=== PATIENT | male | born 1945 | race Caucasian/White ===

== ENCOUNTER → 2016-05-27 | Outpatient (REF) | payer BC ==
[2016-05-27 19:20] LABS: ALBUMIN 3.9 GM/DL (3.2-5.2); ALBUMIN/GLOBULIN RATIO 1.18 (1.00-1.93); ALKALINE PHOSPHATASE 79 U/L (45-117); ALT/SGPT 29 U/L (12-78); ANION GAP 8 MEQ/L (8-16); AST/SGOT 20 U/L (15-37); BILIRUBIN,TOTAL 0.5 MG/DL (0.2-1.0); BLOOD UREA NITROGEN 19 MG/DL (7-18); CALCIUM LEVEL 8.9 MG/DL (8.8-10.2); CARBON DIOXIDE LEVEL 28 MEQ/L (21-32); CHLORIDE LEVEL 106 MEQ/L (98-107); CHOLESTEROL LEVEL 197 MG/DL (<200); CREATININE FOR GFR 1.08 MG/DL (0.70-1.30); GLOMERULAR FILTRATION RATE > 60.0 (>42); GLUCOSE, FASTING 98 MG/DL (83-110); POTASSIUM SERUM 4.6 MEQ/L (3.5-5.1); SODIUM LEVEL 142 MEQ/L (136-145); TOTAL PROTEIN 7.2 GM/DL (6.4-8.2); TRIGLYCERIDES LEVEL 148 MG/DL (<150)
== END ==
LOC: M SFHCCLAY 11:11
PROVIDERS: ATTEND Family Medicine
DX: I10 Essential (primary) hypertension (principal)

== ENCOUNTER → 2016-08-04 | Outpatient (REF) | payer BC ==
[2016-08-04 12:22] LABS: ANION GAP 7 MEQ/L (8-16); BLOOD UREA NITROGEN 20 MG/DL (7-18); CALCIUM LEVEL 8.7 MG/DL (8.8-10.2); CARBON DIOXIDE LEVEL 27 MEQ/L (21-32); CHLORIDE LEVEL 107 MEQ/L (98-107); CREATININE FOR GFR 1.14 MG/DL (0.70-1.30); GLOMERULAR FILTRATION RATE > 60.0 (>42); GLUCOSE, FASTING 87 MG/DL (83-110); POTASSIUM SERUM 4.4 MEQ/L (3.5-5.1); SODIUM LEVEL 141 MEQ/L (136-145)
== END ==
LOC: M SFHCCLAY 07:15
PROVIDERS: ATTEND Family Medicine
DX: H30.92 Unspecified chorioretinal inflammation, left eye (principal)

== ENCOUNTER → 2017-02-10 | Outpatient (REF) | payer MEDICARE, BC ==
[2017-02-10 18:09] LABS: ALT/SGPT 29 U/L (12-78); ANION GAP 8 MEQ/L (8-16); BLOOD UREA NITROGEN 18 MG/DL (7-18); CALCIUM LEVEL 9.1 MG/DL (8.8-10.2); CARBON DIOXIDE LEVEL 28 MEQ/L (21-32); CHLORIDE LEVEL 106 MEQ/L (98-107); CHOLESTEROL LEVEL 145 MG/DL (<200); CREATININE FOR GFR 1.05 MG/DL (0.70-1.30); GLOMERULAR FILTRATION RATE > 60.0 (>42); GLUCOSE, FASTING 97 MG/DL (83-110); POTASSIUM SERUM 4.5 MEQ/L (3.5-5.1); SODIUM LEVEL 142 MEQ/L (136-145); TRIGLYCERIDES LEVEL 80 MG/DL (<150)
== END ==
LOC: M SFHCCLAY 11:12
PROVIDERS: ATTEND Family Medicine
DX: E78.00 Pure hypercholesterolemia, unspecified (principal)

== ENCOUNTER 2017-05-17 14:37 | Emergency (ER) | payer BC | END 2017-05-17 17:08 | disposition home or self-care (01) | LOC: M ED 14:37 | DX: H43.811 Vitreous degeneration, right eye (principal); H43.391 Other vitreous opacities, right eye; I10 Essential (primary) hypertension; Z79.899 Other long term (current) drug therapy; Z86.69 Personal history of other diseases of the nervous system and sense organs; Z88.0 Allergy status to penicillin | CPT/HCPCS: 99283 ==

== ENCOUNTER → 2017-09-18 | Outpatient (CLI) | payer BC ==
[2017-09-18 13:56] LABS: BASO # 0.1 10^3/uL (0.0-0.2); EOS # 0.2 10^3/uL (0.0-0.50); EOS % 3.1 % (0.0-3.0); HEMATOCRIT 41.2 % (42.0-52.0); HEMOGLOBIN 13.9 g/dl (13.5-17.5); IMMATURE GRANULOCYTE % 1.9 % (0-3.0); LYMPH # 1.2 10^3/uL (1.5-4.5); LYMPH % 17.4 % (24.0-44.0); MEAN CORPUSCULAR HEMOGLOBIN 32.3 pg (27.0-33.0); MEAN CORPUSCULAR HGB CONC 33.7 g/dl (32.0-36.5); MEAN CORPUSCULAR VOLUME 95.8 fl (80.0-96.0); MONO # 0.6 10^3/uL (0.0-0.8); MONO % 8.8 % (0.0-5.0); NEUTROPHILS # 4.6 10^3/uL (1.8-7.7); NEUTROPHILS % 67.8 % (36.0-66.0); PLATELET COUNT, AUTOMATED 259 10^3/uL (150-450); RED CELL DISTRIBUTION WIDTH 13.1 % (11.5-14.5); WHITE BLOOD COUNT 6.7 10^3/uL (4.0-10.0)
[2017-09-18 14:31] LABS: ANION GAP 9 MEQ/L (8-16); BLOOD UREA NITROGEN 22 MG/DL (7-18); CALCIUM LEVEL 8.7 MG/DL (8.8-10.2); CARBON DIOXIDE LEVEL 27 MEQ/L (21-32); CHLORIDE LEVEL 106 MEQ/L (98-107); CREATININE FOR GFR 1.15 MG/DL (0.70-1.30); GLOMERULAR FILTRATION RATE > 60.0 (>42); GLUCOSE, FASTING 94 MG/DL (70-100); POTASSIUM SERUM 4.4 MEQ/L (3.5-5.1); SODIUM LEVEL 142 MEQ/L (136-145)
== END ==
LOC: M LAB 13:07
DX: I65.23 Occlusion and stenosis of bilateral carotid arteries (principal)
CPT/HCPCS: 80048

== ENCOUNTER → 2017-09-22 | Outpatient (CLI) | payer BC ==
[~2017-09-22] MED LIST: ISOVUE-370 76% 100ML VIAL (Q9967) As Ordered
== END ==
LOC: M RAD 07:31
DX: I65.23 Occlusion and stenosis of bilateral carotid arteries (principal); I67.2 Cerebral atherosclerosis
CPT/HCPCS: Q9967

== ENCOUNTER → 2018-02-22 | Outpatient (REF) | payer BC, MEDICARE ==
[~2018-02-22] MED LIST changes: +ATEN25TA PO; +ATOR1TAB19 PO; -ISOVUE-370 76% 100ML VIAL (Q9967) As Ordered; +LOSA100T8 PO
[2018-02-22 11:45] LABS: ALBUMIN 3.8 GM/DL (3.2-5.2); ALT/SGPT 33 U/L (12-78); BILIRUBIN,TOTAL 0.4 MG/DL (0.2-1.0); BLOOD UREA NITROGEN 24 MG/DL (7-18); CALCIUM LEVEL 9.2 MG/DL (8.8-10.2); CARBON DIOXIDE LEVEL 26 MEQ/L (21-32); CHLORIDE LEVEL 105 MEQ/L (98-107); CHOLESTEROL LEVEL 165 MG/DL (<200); CHOLESTEROL RISK RATIO 3.235 (<5); CREATININE FOR GFR 1.11 MG/DL (0.70-1.30); GLOMERULAR FILTRATION RATE > 60.0 (>42); GLUCOSE, FASTING 118 MG/DL (70-100); HDL CHOLESTEROL 51 MG/DL (>40); LDL CHOLESTEROL 75 MG/DL (<100); NON-HDL-C 114 MG/DL; POTASSIUM SERUM 4.1 MEQ/L (3.5-5.1); SODIUM LEVEL 140 MEQ/L (136-145); TOTAL PROTEIN 7.4 GM/DL (6.4-8.2); TRIGLYCERIDES LEVEL 196 MG/DL (<150)
== END ==
LOC: M SFHCCLAY 08:17
PROVIDERS: ATTEND Family Medicine
DX: I10 Essential (primary) hypertension (principal); E78.00 Pure hypercholesterolemia, unspecified

== ENCOUNTER → 2018-06-01 | Outpatient (CLI) | payer BC, MEDICARE ==
--- NOTE | 2018-06-01 14:26 | REP ---
Duplex carotid sonography: History: Occlusion and stenosis of bilateral carotid arteries. CT angiography of the neck is from September 22, 2017. This showed 65% stenosis right internal carotid artery. Findings: Antegrade flow was observed in both vertebral arteries. Right carotid: The right common carotid artery shows mild diffuse intimal thickening. There is moderate mixed plaquing in the bulb, proximal ICA and proximal ECA on the right side on two-dimensional scanning. Elevated systolic and diastolic flow velocities are observed on the right consistent with substantial stenosis. Velocity chart right carotid: PSV EDV Right CCA 65.0 cm/s Right ICA 352.0 124.0 Right ECA 107.0 Right ICA/CCA ratio elevated 5.4. Impression: 80-99% category stenosis by Doppler velocity criteria. Right ICA Doppler velocities are not substantially different than those measured by ultrasound previously on June 06, 2017. Left carotid: Left common carotid artery shows diffuse intimal thickening. There is moderate plaquing in the bulb, proximal ICA and proximal ECA on the left side. Color flow and spectral Doppler interrogation are unremarkable on the left. Velocity chart left carotid: PSV EDV Left CCA 77.0 cm/s Left ICA 73.0 19.0 Left ECA 69.0 Left ICA/CCA ratio normal 0.95. Impression: 16-49% category narrowing in the left ICA by Doppler velocity criteria. Left ICA Doppler velocities are not significantly changed. Electronically Signed by Joe Mullen MD 06/01/2018 02:39 P
== END ==
LOC: M RAD 12:08
PROVIDERS: ATTEND Surgery Vascular Surgery
DX: I65.23 Occlusion and stenosis of bilateral carotid arteries (principal)

== ENCOUNTER → 2018-08-26 | Outpatient (CLI) | payer BC | LOC: M WUC 12:08 | PROVIDERS: ATTEND Physician Assistant | DX: M79.674 Pain in right toe(s) (principal) ==

== ENCOUNTER → 2018-11-30 | Outpatient (CLI) | payer BC ==
--- NOTE | 2018-11-30 16:55 | REP ---
Duplex carotid sonography: History: Carotid stenosis. Comparison study June 30, 2018. Sonographic findings: Antegrade flow was observed in both vertebral arteries. Right carotid: There is mild soft plaquing in the common carotid artery on the right. There is moderate mixed plaquing in the bulb and proximal ICA and there is evidence of ICA stenosis. Elevated systolic and diastolic velocities are observed on color Doppler interrogation in the ICA on the right side. Velocities have increased slightly since the prior study. Plaquing is visually unchanged. Velocity chart right carotid: CCA PSV 91 cm/s ICA PSV 41 cm/s ICA EDV 140 cm/s ECA PSV 120 cm/s Right ICA/CCA ratio elevated 5.3. Impression: Greater than 70% category narrowing in the right ICA by Doppler velocity criteria. Doppler velocities are slightly higher than on the prior study. Left carotid: Left common carotid artery shows soft plaquing. There is moderate proximal ICA and proximal ECA plaquing on two-dimensional scanning. Color flow and spectral Doppler interrogation remain unremarkable however. Velocity chart left carotid: CCA PSV 114 cm/s ICA PSV 100 cm/s ICA EDV 24 cm/s ECA PSV 148 cm/s Left ICA/CCA ratio normal 1.1. Impression: Less than 50% category narrowing in the left ICA by Doppler velocity criteria. Doppler velocities are essentially unchanged on the left. Electronically Signed by Joe Mullen MD 11/30/2018 05:07 P
== END ==
LOC: M RAD 10:30
PROVIDERS: ATTEND Surgery Vascular Surgery
DX: I65.23 Occlusion and stenosis of bilateral carotid arteries (principal)

== ENCOUNTER → 2019-02-11 | Outpatient (CLI) | payer BC ==
--- NOTE | 2019-02-11 13:45 | REP ---
Two-view chest: 02/11/2019. Indication: Chest pain. Comparison: None. Findings: The lungs are clear. There is no pleural effusion or pneumothorax. The cardiomediastinal silhouette is unremarkable. There is mild elevation of the left hemidiaphragm. Impression: No acute cardiopulmonary process. Electronically Signed by Jeremiah Roth DO 02/11/2019 01:37 P
== END ==
LOC: M WUC 13:14
PROVIDERS: ATTEND Internal Medicine Cardiovascular Disease
DX: R07.2 Precordial pain (principal)

== ENCOUNTER 2019-03-13 09:59 | Inpatient (IN) | payer MEDICARE, BC ==
--- NOTE | 2019-02-20 20:59 | HPE ---
DATE OF ADMISSION: 03/13/2019 CHIEF COMPLAINT: Carotid stenosis. HISTORY OF PRESENT ILLNESS: This is a very pleasant 73-year-old gentleman who presents to discuss options for severe right carotid stenosis. The patient has asymptomatic right carotid stenosis greater than 80%. His peak-systolic velocity (PSV)/end-diastolic velocity (EDV) is 410/140 for the right internal carotid artery (ICA). The ICA/common carotid artery (CCA) ratio is 5.3. This is a significant stenosis and we had a lengthy discussion about carotid artery disease, best medical management, indication for carotid endarterectomy, and perioperative expectations. Risks, benefits and alternatives to carotid endarterectomy on the right were extensively explained to the patient and his and they are both agreeable to proceed. Informed consent was obtained. Left carotid artery stenosis is less than 50% and no further vascular intervention is required for the left side at this time. The patient is on best medical management with aspirin and statin and Plavix. He denies any recent history of transient ischemic attack (TIA) or stroke. We would like him to stay on the Plavix perioperatively and not hold it for surgery. He should also stay on the aspirin for surgery. He is agreeable to this plan. MEDICATIONS: - aspirin 81 mg daily - atenolol 12.5 mg daily - atorvastatin 10 mg daily - donepezil 5 mg daily - escitalopram oxalate 10 mg daily - hydrochlorothiazide 12.5 mg daily - losartan potassium/hydrochlorothiazide 100/12.5 mg daily - Plavix 75 mg daily - vitamin D3 2000 units nightly ALLERGIES: PENICILLIN. PAST MEDICAL HISTORY: Lyme disease, blind in the left eye, gastroesophageal reflux disease, hypertension, hypercholesterolemia. PAST SURGICAL HISTORY: Right knee surgery, deviated septum repair, colonoscopy, peripherally inserted central catheter (PICC) line placement, cataract implant on the left. FAMILY HISTORY: Lung cancer, diabetes, hypertension. SOCIAL HISTORY: The patient is a former smoker who quit in 1997. He has occasional alcohol and denies illicit drug use. REVIEW OF SYSTEMS: CONSTITUTIONAL: The patient denies fevers, chills, weight gain, or weight loss. EYES: No new vision changes but he is blind in his left eye. EARS, NOSE, MOUTH, AND THROAT: He denies hearing loss, congestion, or dysphagia. CARDIOVASCULAR: He denies chest pain or palpitations. RESPIRATORY: He denies cough, hemoptysis, or shortness of breath. GASTROINTESTINAL (GI): He reports gastroesophageal reflux disease (GERD) but denies abdominal pain, constipation, diarrhea, nausea or vomiting. MUSCULOSKELETAL: He denies myalgia, pain and trouble walking. SKIN: He denies skin cancer, rash and wound. NEUROLOGIC: He denies focal deficit, headaches or seizures. PSYCHIATRIC: He denies anxiety or depression. ENDOCRINE: He denies diabetes, hyperthyroid or hypothyroidism. HEMATOLOGIC: He denies anemia or excessive bruising. PHYSICAL EXAMINATION: He is afebrile. Vital signs are stable. CONSTITUTIONAL: He appears healthy and well-developed. No signs of apparent distress are present. HEAD AND FACE: Normal on inspection. EARS, NOSE, MOUTH, AND THROAT: Tympanic membranes are intact. External nose within normal limits. NECK: Supple. Right carotid bruit is present. RESPIRATORY: No wheezing. Clear to auscultation. CARDIOVASCULAR: Regular rate and rhythm. ABDOMEN: Bowel sounds are present. Abdomen is soft, nontender, nondistended. LYMPHATICS: No palpable or visible lymphadenopathy. MUSCULOSKELETAL: Gait is steady. Distal pulses 2+, dorsalis pedis (DP) and posterior tibial (PT). SKIN: No rashes or lesions. NEUROLOGIC: Alert and oriented times three, moves all extremities equally. No focal neurologic deficits are noted. PSYCHIATRIC: Pleasant and cooperative. IMAGING STUDIES: Carotid duplex reviewed with the patient in clinic today. Please see history of present illness for relevant interpretation. ASSESSMENT AND PLAN: A very pleasant 73-year-old gentleman with severe right internal carotic artery stenosis, asymptomatic. 1. Continue aspirin and Plavix and statin. We would like Plavix to be continued for at least 30 days perioperatively and the patient should stay on it before surgery and not hold the Plavix or the aspirin. 2. Plan for right carotid endarterectomy with patch angioplasty. We appreciate the opportunity to participate in the care of this patient.
[2019-03-13] VITALS (15 sets, daily range): BP systolic 98–149; BP diastolic 50–74
[~2019-03-13] VITALS: Ht 180.3 cm; Wt 118.0 kg
[~2019-03-13 09:59] MED LIST changes: +ASPI81TA26 PO; +DONETAB6 PO; +HYDR12.55 PO; +LEXA1TAB PO; +LR 1,000 ML IV ONE; +PLAV1TAB2 PO; +VANCOMYCIN HCL 1,000 MG, VIAL MATE ADAPTER 1 EACH in D5W 250 ML IV SCH
[2019-03-13] MEDS ORDERED: THROMBIN SOLN 20,000 UNITS KIT As Ordered ONE (10:22)
[2019-03-13] MEDS ORDERED: LIDOCAINE 1% SDV INJ 30 ML VIAL As Ordered ONE ×2 (10:23→13:11)
[2019-03-13] MEDS ORDERED: HEPARIN SOD (PORCINE) 5000 UNITS/ML VIAL (J1644 PER 1000UNITS) As Ordered ONE ×2 (10:23→12:37)
[2019-03-13] MEDS ORDERED: D32000TA2 PO (10:37)
[2019-03-13 10:39] LABS: HEMATOCRIT 44.2 % (42.0-52.0); HEMOGLOBIN 14.5 g/dl (13.5-17.5); MEAN CORPUSCULAR HEMOGLOBIN 32.5 pg (27.0-33.0); MEAN CORPUSCULAR HGB CONC 32.8 g/dl (32.0-36.5); MEAN CORPUSCULAR VOLUME 99.1 fl (80.0-96.0); PLATELET COUNT, AUTOMATED 272 10^3/uL (150-450); RED BLOOD COUNT 4.46 10^6/uL (4.30-6.10); WHITE BLOOD COUNT 6.3 10^3/uL (4.0-10.0)
[2019-03-13 11:02] LABS: BLOOD UREA NITROGEN 20 MG/DL (7-18); CARBON DIOXIDE LEVEL 29 MEQ/L (21-32); CHLORIDE LEVEL 105 MEQ/L (98-107); CREATININE FOR GFR 1.21 MG/DL (0.70-1.30); GLOMERULAR FILTRATION RATE > 60.0 (>42); GLUCOSE, FASTING 106 MG/DL (70-100); POTASSIUM SERUM 3.9 MEQ/L (3.5-5.1); SODIUM LEVEL 140 MEQ/L (136-145)
[2019-03-13] MEDS ORDERED: VANCOMYCIN 1000 MG/20 ML VIAL (J3370) As Ordered ONE ×3 (11:07→11:20)
[2019-03-13] MEDS ORDERED: VIAL MATE ADAPTER XX ONE (11:20)
[2019-03-13] MEDS ORDERED: BUPIVACAINE/EPIN 0.5% 30 ML VIAL As Ordered ONE (12:04)
[2019-03-13] MEDS ORDERED: ROCURONIUM BROMIDE 50 MG/5 ML VIAL As Ordered ONE (12:37)
[2019-03-13] MEDS ORDERED: fentaNYL 100 MCG/2 ML INJECTION (J3010) As Ordered ONE (12:37)
[2019-03-13] MEDS ORDERED: propofoL 200 MG/20 ML VIAL As Ordered ONE ×2 (12:37→13:12)
[2019-03-13] MEDS ORDERED: MIDAZOLAM INJ 2 MG/2 ML VIAL (J2250) As Ordered ONE (12:37)
[2019-03-13] MEDS ORDERED: dexameTHASONE 4 MG/ML 1ML VIAL (J1100) As Ordered ONE (12:37)
[2019-03-13] MEDS ORDERED: PHENYLEPHRINE INJ 10MG/ML VIAL (J2370) As Ordered ONE (12:37)
[2019-03-13] MEDS ORDERED: LABETALOL HCL 100 MG/20 ML VIAL As Ordered ONE (12:37)
[2019-03-13] MEDS ORDERED: LIDOCAINE 2% INJ 100 MG/5 ML SDV (FOR ANES.) As Ordered ONE ×2 (12:37→13:50)
[2019-03-13] MEDS ORDERED: ePHEDrine SULFATE 25 MG/5 ML(5MG/ML) SYRINGE As Ordered ONE ×2 (12:44→14:16)
[2019-03-13] MEDS ORDERED: GLYCOPYRROLATE INJ 0.2 MG/ML 2 ML VIAL As Ordered ONE (13:04)
[2019-03-13] MEDS ORDERED: ATROPINE SULF 1MG/10ML SYRINGE (J0461) As Ordered ONE (13:11)
[2019-03-13] MEDS ORDERED: NITROGLYCERIN IN D5W 25MG/250ML (100MCG/ML) As Ordered ONE (13:42)
[2019-03-13] MEDS ORDERED: ESMOLOL INJ 100MG/10ML VIAL As Ordered ONE (14:08)
[2019-03-13] MEDS ORDERED: ACETAMINOPHEN 1000MG 100ML IV BTL (OFIRMEV) (J0131 PER 10MG) As Ordered ONE (14:10)
[2019-03-13] MEDS ORDERED: SUGAMMADEX SODIUM 500 MG/5 ML VIAL (BRIDION) As Ordered ONE (14:26)
--- NOTE | 2019-03-13 15:18 | ROOPDOC ---
[facility] Report Of Operation Report of Operation DATE OF PROCEDURE: 03/13/19 PREPROCEDURE DIAGNOSES: Severe right carotid stenosis, asymptomatic. POSTPROCEDURE DIAGNOSES: Same. PROCEDURE: Right carotid endarterectomy with Xenosure patch angioplasty. SURGEON: Sheri Parson MD ANESTHESIA: General anesthesia and local anesthesia. INDICATION FOR PROCEDURE: Mr. Medeiros is a very pleasant 73-year-old gentleman with asymptomatic severe right carotid stenosis. Risks benefits and alternatives to right carotid endarterectomy were explained to the patient and his family. He was agreeable to proceed and informed consent was obtained. Preoperatively, his neuro exam revealed cranial nerves grossly intact, speech clear, moving all extr emities equally and no focal deficits noted. REPORT OF OPERATION: The patient was brought to the OR in stable condition and placed supine on the OR table. Antibiotics and general anesthesia were administered without consultation. An art line was placed by our anesthesia colleagues. A shoulder roll was placed in the head was positioned to extend the neck but make sure there was enough support for the head. His right neck and chest were prepped and draped in sterile fashion. A timeout was performed. An oblique incision was made over the anterior border of the sternocleidomastoid and carried down to the subcutaneous tissue and the platysma with Bovie cautery. We then continued or dissection along the anterior border of the sternocleidomastoid until the jugular vein was encountered. We dissected along the anterior border of the jugular vein and the facial vein was suture ligated and divided. Next, we dissected along the distal common carotid artery circumferentially and a vessel loop was placed. We then proceeded up to this. Thyroid artery and a vessel loop was placed. We then placed a vessel loop around the external carotid arteries well. 5000 units of heparin was given by anesthesia and allowed to circulate the continued or dissection along the internal carotid artery until we were distal to the area palpable plaque. We then placed a vessel loop distally. During or dissection, nerves were identified and carefully preserved. Following this, we secured the Vesseloops on the internal carotid artery, external carotid artery comments. Thyroid artery, and then the common carotid artery. An arteriotomy was made on the common carotid artery and extended over the area of tight plaque in the internal carotid artery origin with pot scissors. We then placed the distal end of an 8 [place] shunt into the internal carotid artery and resecured the Vesseloops a good backbleeding was noted. We placed the proximal and into the common carotid artery resecured the Vesseloops. Flow was confirmed with the Doppler. We maintained blood pressure while the patient was shunted between 140 and 160 mmHg. The plaque elevator was used to elevate the plaque in the common carotid artery and this was transected at the proximal end of her arteriotomy. We then feathered the plaque out towards the external carotid artery which was everted to allow good endarterectomy plane. We then feathered the plaque out carefully to a good endpoint in the internal carotid artery. Care was taken to live removed all loose intima and debris from the carotid bulb. We irrigated with heparinized saline and again make sure all loose intima and debris was removed. We then fashioned and accuracy O patch to 50 arteriotomy and anastomosis in a running fashion with 5-0 Prolene suture. Before the final sutures are placed, we irrigated with heparinized saline, removed the shunt from the internal carotid artery and flushed and resecured the Vesseloops, and then removed the shunt from the common carotid artery and flushed and resecured the vessel loop we also flush the external carotid artery. We irrigated with heparinized saline and placed our last few stitches. We then restored flow first through the external carotid artery and superior thyroid, then the common carotid artery, and after 10 beats of the heart we restart flow to the internal carotid artery. Blood pressure was then allowed to drift down below 140 mmHg for the duration of the case. Minimal oozing around the patch was noted at the needle holes, and Surgicel was placed over the patch and gentle pressure was held for 1 minute and good hemostasis was noted. We irrigated with copious amounts of saline. A MEGHAN drain was placed and secured with a nylon suture in place to bulb suction. Local anesthesia was administered to the skin and subcutaneous tissue around the incision. We closed the platysmal layer with a running 2-0 Vicryl suture. We approximated the skin edges with interrupted deep dermal 4-0 Vicryl suture. And then we closed the skin with a running subcuticular Monocryl suture. Mastisol and Steri-Strips were used to dress the wound. A drain sponge was placed at the MEGHAN exit site. The patient was allowed to awaken from anesthesia and was able to speak clearly, move all extremities equally, and follow commands before we transferred him to the bed and left the OR. He went to PACU in stable condition and will be admitted to the ICU overnight. ESTIMATED BLOOD LOSS: Approximately 75 mL. COMPLICATIONS: None. PLAN: The patient will be admitted to the hospitalist service, ICU for blood pressure monitoring, neuro checks, and monitoring for development of hematoma right neck postop. If he is stable and doing well tomorrow, able to ambulate and urinate without difficulty, able to eat without difficulty, and his neuro exam is stable with stable vital signs, he will likely be able to be discharged tomorrow morning. Goal blood pressure is less than 140 mmHg systolic. SHERI PARSON MD Mar 13, 2019 15:18
[2019-03-13] MEDS ORDERED: LR 1,000 ML IV SCH (15:30)
[2019-03-13] MEDS ORDERED: hydrALAZINE INJ 20 MG/ML VIAL IV PRN (15:30)
[2019-03-13] MEDS ORDERED: ONDANSETRON 4MG/2ML VIAL (J2405) IV PRN (15:30)
[2019-03-13] MEDS ORDERED: ACETAMINOPHEN TAB 650MG DOSE (2X325MG) PO PRN (15:30)
[2019-03-13] MEDS ORDERED: LABETALOL HCL 100 MG/20 ML VIAL IV PRN (15:30)
[2019-03-13] MEDS ORDERED: PERCOCET 5MG/325MG TAB PO PRN (15:30)
[2019-03-13] MEDS ORDERED: fentaNYL 100 MCG/2 ML INJECTION (J3010) IV PRN (15:30)
[2019-03-13] MEDS ORDERED: oxyCODONE 5MG TAB PO PRN (15:30)
--- NOTE | 2019-03-13 17:50 | IPNPDOC ---
Date Seen The patient was seen on 03/13/19. Progress Note POSTOP CHECK: Mr. Medeiros is a 73-year-old gentleman status post right carotid endarterectomy earlier today for severe asymptomatic right internal carotid artery stenosis. He is doing well postop. His voice is clear, cranial nerves are grossly intact, tongue is midline, strength is equal in the bilateral upper and lower extremities, and no focal deficits are noted. He has mild swelling in the right neck consistent with operative intervention. He has minimal output in his MEGHAN drain. His blood pressure is fairly well controlled with a goal systolic blood pressure of less than 140 mmHg, and minimal IV antihypertensives have been needed to maintain him in that range. He has not yet eaten or gotten out of bed, but the nurse that she will bring him a tray of food shortly. If he doesn't get up tonight, he should definitely get up in the morning and ambulate, and if he is able to do so, knees able to eat, and his neuro exam is stable, his vitals are stable and his pain is controlled then he will be able to discharge tomorrow. Our plan will be to discharge the MEGHAN drain in the morning and see how he is feeling. He will continue the Plavix until his prescription is complete, and then he does not need to renew it from a vascular standpoint. He should continue aspirin and statin daily for life. We will plan to see him back in a week to check his incision, and then at a month postop for a repeat carotid duplex as part of our postop protocol. The patient's family is at the bedside and we had an extensive discussion and all questions were answered. VS, I&O, 24H, Fishbone Vital Signs/I&O Vital Signs Date Time Temp Pulse Resp B/P (MAP) Pulse Ox O2 Delivery O2 Flow Rate FiO2 03/13/19 16:30 65 16 114/56 (75) 100 Nasal Cannula 2 03/13/19 15:45 96.7 Laboratory Data 24H LABS Laboratory Tests 2 03/13/19 10:18: Nucleated Red Blood Cells % (auto) 0.0, Anion Gap 6L, Glomerular Filtration Rate > 60.0, Calcium Level 9.0 CBC/BMP Laboratory Tests 03/13/19 10:18 SHERI PRITCHARD MD Mar 13, 2019 17:50
--- NOTE | 2019-03-13 19:11 | HPE ---
DATE OF ADMISSION: 03/13/2019 CHIEF COMPLAINT: Carcinosis, status post right carotid endarterectomy this afternoon. HISTORY OF PRESENT ILLNESS: Mr. Medeiros is a very pleasant 73-year-old gentleman who had presented for an elective right carotid endarterectomy due to severe right carotid stenosis greater than 80%. He was seen in the postoperative setting, currently in the intensive care unit (ICU). He is alert and oriented times three and denies having any acute neurologic deficits. He has a past medical history of Lyme disease, which has rendered him to be blind in his left eye. He has a history of hypertension, hyperlipidemia, as well as gastroesophageal reflux disease (GERD). ALLERGIES: PENICILLIN which causes rash. His medications are aspirin, Tylenol, atorvastatin, donepezil, citalopram, hydrochlorothiazide, losartan/hydrochlorothiazide, Plavix 75 mg daily and vitamin D3 2000 units nightly. PAST MEDICAL HISTORY: Notable for hyperlipidemia, hypertension ,gastroesophageal reflux disease (GERD), Lyme disease and left eye blindness. PAST SURGICAL HISTORY: He has a nasal septum repair. He has had a cataract implant in the left eye. SOCIAL HISTORY: The patient is an ex-smoker, who quit in the late s. He does not use any alcohol, but drinks occasional alcohol. Resides at home with his family. REVIEW OF SYSTEMS: 12-systems review of the patient otherwise negative. PHYSICAL EXAMINATION: On examination today, the patient's vitals are the following: Pulse of 65, respirations 16, blood pressure is 114/56, oxygen saturation 100% on nasal cannula. GENERAL: The patient is alert and oriented times three. His speech is fluent. He has no facial asymmetry. He is moving all four extremities in a purposeful coordinated manner. HEAD: Atraumatic. Normocephalic. His pupils are symmetric and reactive to light. Extraocular movements are full in all directions. Oropharynx is clear with areas of erythema or thrush. Tongue is midline. Soft palate elevates bilaterally. . He has a mildly noticeable left facial droop, which is likely chronic. His right neck surgical wound is clean, dry and intact with drains in place draining serosanguineous fluid. He has no exsanguination from the surgical wound bed. He has no audible stridor. His trachea is midline. Lung sounds are appreciated without rales, wheezes or rhonchi. Heart: S1, S2. No audible murmurs, rubs or gallops. Abdomen is soft, nontender, nondistended wit active bowel sounds. Extremities: Without any significant cyanosis, clubbing or edema. Neurological exam: Cranial nerves II/XII are grossly intact. Motor strength is 5/5 in upper and lower extremities at the proximal and distal musculature. Speech is fluent. He has a mild left facial asymmetry, which likely is not reflective of a stroke as he has no other stroke symptoms. PERTINENT LABS ARE THE FOLLOWING: White count is 6.3, hemoglobin 14.5, hematocrit 44.2, platelet count 272,000. Sodium is 140, potassium is 3.9, chloride 105, bicarbonate is 29, anion gap 6, BUN is 20, creatinine is 1.2, glucose is 106, calcium is 9. IMPRESSION: 1. Right carotid severe stenosis, status post right carotid endarterectomy. 2. Hypertension. 3. Hyperlipidemia 4. Deep vein thrombosis (DVT) prophylaxis. PLAN: The patient will be admitted to the intensive care unit (ICU) for observation following his carcinoembryonic antigen. Dr. Parson will remain on consultation and manage his postoperative course. He will be continued on his Plavix. I have resumed his Lexapro, as well as hydrochlorothiazide. At present moment, his blood pressure is less than 130 mmHg. He can be renewed on his atorvastatin, as well as other medications at the time of discharge. Thank you Dr. Parson for allowing us to involve ourself in this case. We will gladly follow.
[2019-03-14] VITALS (12 sets, daily range): BP systolic 96–148; BP diastolic 49–96
[2019-03-14] MEDS ORDERED: ESCITALOPRAM OXALATE 10 MG TAB (LEXAPRO) PO SCH (09:00)
[2019-03-14] MEDS ORDERED: hydroCHLOROthiazide 12.5 MG CAPSULE PO SCH (09:00)
[2019-03-14] MEDS ORDERED: CLOPIDOGREL 75 MG TAB PO SCH (09:00)
[2019-03-14] MEDS ORDERED: PERCOCET PO (09:03)
[2019-03-14 09:12] LABS: HEMATOCRIT 38.7 % (42.0-52.0); HEMOGLOBIN 12.8 g/dl (13.5-17.5); MEAN CORPUSCULAR HGB CONC 33.1 g/dl (32.0-36.5); MEAN CORPUSCULAR VOLUME 99.7 fl (80.0-96.0); PLATELET COUNT, AUTOMATED 249 10^3/uL (150-450); RED BLOOD COUNT 3.88 10^6/uL (4.30-6.10); WHITE BLOOD COUNT 11.2 10^3/uL (4.0-10.0)
[2019-03-14 09:44] LABS: CALCIUM LEVEL 8.7 MG/DL (8.8-10.2); CREATININE FOR GFR 1.26 MG/DL (0.70-1.30); GLOMERULAR FILTRATION RATE 59.6 (>42); POTASSIUM SERUM 3.7 MEQ/L (3.5-5.1)
--- NOTE | 2019-03-14 14:16 | IPNPDOC ---
Text Note Date of Service The patient was seen on 03/14/19. NOTE Vascular surgery. Dr. Parson Mr. Medeiros is a 73-year-old gentleman status post right carotid endarterectomy 03/13/19 for severe asymptomatic right internal carotid artery stenosis. He is currently out of bed sitting in the chair. He has been eating and drinking. He states he ambulated in the room. Pain has been controlled. His voice is clear, cranial nerves are grossly intact, tongue is midline, strength is equal in the bilateral upper and lower extremities, and no focal deficits are noted. He has mild swelling in the right neck consistent with operative intervention. He has minimal output in his MEGHAN drain. Blood pressure this a.m. 120/61. MEGHAN drain was removed as per Dr. Parson this morning. The wound was cleaned. Steri-Strips were applied. Dry dressing reapplied. He will continue the Plavix until his prescription is complete, and then he does not need to renew it from a vascular standpoint. He should continue aspirin and statin daily for life. Will arrange outpatient follow-up in 5-7 days, one month repeat carotid duplex as part of our postop protocol. The patient's family is at the bedside and we had an extensive discussion and all questions were answered. VS,Fishbone, I+O VS, Fishbone, I+O Laboratory Tests 03/14/19 08:37 Vital Signs Date Time Temp Pulse Resp B/P (MAP) Pulse Ox O2 Delivery O2 Flow Rate FiO2 03/14/19 08:00 97.9 52 18 120/61 (84) 98 Room Air 108/96 03/13/19 16:30 2 I&O- Last 24 Hours up to 6 AM 03/14/19 06:00 Intake Total 3937 ml Output Total 347 ml Balance 3590 ml Alyce Castano Mar 14, 2019 14:16
--- NOTE | 2019-03-14 15:33 | DSES ---
DATE OF ADMISSION: 03/13/2019 DATE OF DISCHARGE: 03/14/2019 Mr Medeiros was admitted by Dr. Parson for treatment for performance of carotid endarterectomy on the right side. The surgery went uneventfully. He had mild left facial droop, which by accounts seemed to have been present before the procedure and is not particularly worse after the procedure. Pressures were well controlled throughout with the highest postoperative pressure being 148/52. Arterial line was discontinued this morning. Drain was pulled by Dr. Parson this morning. Minimal oozing. The patient is declared safe for discharge by the surgeon. Laboratory data during hospital stay, electrolytes remarkable for normal potassium and sodium. Glucose 106, fasting. Calcium was normal 9.0. Hemoglobin 14.5, normal platelet count, white count 6300. The patient's past medical history is remarkable for hypertension and hypercholesterolemia, and a history of Lyme disease. 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 DISCHARGE DIAGNOSES: Carotid occlusive disease, atherosclerotic cardiovascular disease status post right carotid endarterectomy, hypertension, hypercholesterolemia, dementia consistent with a vascular dementia pattern. Activity will be as tolerated. He will continue a 2 gram sodium diet. His medications at discharge will include atenolol 25 mg tablets taking 1/2 tablet daily, atorvastatin 40 mg daily, vitamin D3 2000 units daily, clopidogrel 75 mg daily until his current supply ends and then he will switch back to aspirin 81 mg daily, donepezil 10 mg by mouth daily, escitalopram 10 mg daily, hydrochlorothiazide 12.5 mg daily, and losartan hydrochlorothiazide 100- 12.5 daily.
== END 2019-03-14 10:43 | disposition home or self-care (01) | DRG 39 ==
LOC: M OR 09:59 → INTOOBSV 09:59 → OBSVTOIN 11:20 → M ICU 17:24 → M OR 17:24 → UNDODISIN 03-14 10:43 → UNDODISOB 03-14 10:43
PROVIDERS: ADMIT Surgery Vascular Surgery; ATTEND Family Medicine
PROC: 03UK0JZ Supplement Right Internal Carotid Artery with Synthetic Substitute, Open Approach (ICD-10-PCS; 2019-03-13)
PROC: 03CK0ZZ Extirpation of Matter from Right Internal Carotid Artery, Open Approach (ICD-10-PCS; principal; 2019-03-13 11:30)
DX: I65.21 Occlusion and stenosis of right carotid artery (principal); I10 Essential (primary) hypertension; E78.00 Pure hypercholesterolemia, unspecified; K21.9 Gastro-esophageal reflux disease without esophagitis; H54.62 Unqualified visual loss, left eye, normal vision right eye; F01.50 Vascular dementia, unspecified severity, without behavioral disturbance, psychotic disturbance, mood disturbance, and anxiety; Z88.0 Allergy status to penicillin; Z79.899 Other long term (current) drug therapy; Z79.82 Long term (current) use of aspirin; Z86.19 Personal history of other infectious and parasitic diseases; Z87.891 Personal history of nicotine dependence; Z96.1 Presence of intraocular lens

== ENCOUNTER → 2019-03-28 | Outpatient (REF) | payer BC ==
[~2019-03-28] MED LIST changes: +D32000TA2 PO; -LR 1,000 ML IV ONE; +PERCOCET PO; -VANCOMYCIN HCL 1,000 MG, VIAL MATE ADAPTER 1 EACH in D5W 250 ML IV SCH
[2019-03-28 12:40] LABS: ALT/SGPT 25 U/L (12-78); BLOOD UREA NITROGEN 21 MG/DL (7-18); CALCIUM LEVEL 8.9 MG/DL (8.8-10.2); CARBON DIOXIDE LEVEL 32 MEQ/L (21-32); CHLORIDE LEVEL 102 MEQ/L (98-107); CHOLESTEROL LEVEL 157 MG/DL (<200); CHOLESTEROL RISK RATIO 3.204 (<5); CREATININE FOR GFR 1.23 MG/DL (0.70-1.30); GLOMERULAR FILTRATION RATE > 60.0 (>42); GLUCOSE, FASTING 108 MG/DL (70-100); HDL CHOLESTEROL 49 MG/DL (>40); LDL CHOLESTEROL 76 MG/DL (<100); NON-HDL-C 108 MG/DL; POTASSIUM SERUM 3.9 MEQ/L (3.5-5.1); SODIUM LEVEL 140 MEQ/L (136-145); TRIGLYCERIDES LEVEL 159 MG/DL (<150); URIC ACID 7.8 MG/DL (3.5-7.2)
== END ==
LOC: M SFHCCLAY 09:10
PROVIDERS: ATTEND Family Medicine
DX: I10 Essential (primary) hypertension (principal); E78.00 Pure hypercholesterolemia, unspecified; I65.21 Occlusion and stenosis of right carotid artery; M1A.9XX0 Chronic gout, unspecified, without tophus (tophi)

== ENCOUNTER → 2019-04-09 | Outpatient (CLI) | payer BC ==
--- NOTE | 2019-04-09 16:13 | REP ---
Clinical: Status post right endarterectomy. Comparison: 11/30/2018 . Technique: Mckeon scale and color Doppler evaluation using linear high frequency transducer Findings: Two-dimensional mckeon scale and color images demonstrate Mixed atheromatous plaquing (left greater than right) with normal with laminar flow and no appreciable narrowing. Color Doppler interrogation demonstrates normal arterial wave patterns and velocities with moderate spectral broadening. Normal flow direction is appreciated in the bilateral vertebral arteries. RIGHT (cm/s) LEFT (cm/s) ICA peak systolic velocity 63.8 77.4 ICA diastolic velocity 14.1 19.5 ECA peak systolic velocity 115.0 96.2 CCA peak systolic velocity 100.0 91.7 ICA/CCA ratio 0.64 0.84 Impression: No hemodynamically significant areas of narrowing or stenosis appreciated. Based on set standards narrowing falls within the less than 50% range. Electronically Signed by Isidro Barron MD 04/09/2019 04:04 P
== END ==
LOC: M RAD 14:56
PROVIDERS: ATTEND Physician Assistant
DX: I65.23 Occlusion and stenosis of bilateral carotid arteries (principal)

== ENCOUNTER → 2019-05-13 | Outpatient (REF) | payer BC ==
[2019-05-13 13:35] LABS: BASO # 0.1 10^3/uL (0.0-0.2); EOS # 0.3 10^3/uL (0.0-0.5); EOS % 4.2 % (0.0-3.0); HEMATOCRIT 42.2 % (42.0-52.0); HEMOGLOBIN 13.8 g/dl (13.5-17.5); LYMPH # 1.2 10^3/uL (1.5-5.0); LYMPH % 18.6 % (24.0-44.0); MEAN CORPUSCULAR HEMOGLOBIN 32.7 pg (27.0-33.0); MEAN CORPUSCULAR HGB CONC 32.7 g/dl (32.0-36.5); MONO # 0.6 10^3/uL (0.0-0.8); NEUTROPHILS # 4.1 10^3/uL (1.5-8.5); NEUTROPHILS % 65.8 % (36.0-66.0); PLATELET COUNT, AUTOMATED 292 10^3/uL (150-450); RED BLOOD COUNT 4.22 10^6/uL (4.30-6.10); WHITE BLOOD COUNT 6.2 10^3/uL (4.0-10.0)
[2019-05-13 14:08] LABS: ALBUMIN 3.8 GM/DL (3.2-5.2); ALT/SGPT 25 U/L (12-78); BILIRUBIN,TOTAL 0.4 MG/DL (0.2-1.0); BLOOD UREA NITROGEN 21 MG/DL (7-18); CALCIUM LEVEL 9.2 MG/DL (8.8-10.2); CARBON DIOXIDE LEVEL 29 MEQ/L (21-32); CHLORIDE LEVEL 105 MEQ/L (98-107); CREATININE FOR GFR 1.19 MG/DL (0.70-1.30); FREE T4 0.93 NG/DL (0.76-1.46); GLOMERULAR FILTRATION RATE > 60.0 (>42); GLUCOSE, FASTING 100 MG/DL (70-100); POTASSIUM SERUM 4.4 MEQ/L (3.5-5.1); SODIUM LEVEL 139 MEQ/L (136-145); TOTAL PROTEIN 7.6 GM/DL (6.4-8.2)
[2019-05-13 14:09] LABS: VITAMIN B12 LEVEL 342 PG/ML
[2019-05-13 14:10] LABS: FOLATE 6.1 NG/ML
== END ==
LOC: M LABNEURO 10:01
PROVIDERS: ATTEND Psychiatry & Neurology Neurology
DX: E07.9 Disorder of thyroid, unspecified (principal); G62.9 Polyneuropathy, unspecified

== ENCOUNTER → 2019-06-18 | Outpatient (CLI) | payer BC ==
--- NOTE | 2019-06-19 11:55 | SLEEPCENT ---
DATE OF STUDY: 06/18/2019 ORDERING PROVIDER: TORITO Guadarrama Nocturnal polysomnography was performed for evaluation of sleep physiology in this patient with a history of excessive somnolence and nonrestorative sleep who has comorbidities of hypertension and pulmonary hypertension. 8 hours of data were reviewed. There were 353 minutes of sleep identified. Sleep latency was prolonged at 63 minutes. Rapid eye movement (REM) latency was prolonged at 207 minutes. Sleep architecture showed initial poor progression. There were two REM cycles noted. Overall sleep efficiency was 74.4%. The patient's electrocardiogram showed a sinus rhythm with an average heart rate of 55 beats per minute. Rate ranged 45-75. Electroencephalogram (EEG) showed normal waveforms for awake and sleep. There were 56 respiratory events identified of 10 seconds in duration or greater for an apnea-hypopnea index of 9.7. The events were obstructive, not exclusive to sleep stage nor body posture. Arousals from respiratory events occurred 4.8 times per hour, and oxygen desaturations were seen into the 80s. There as some activity in the limb leads. Limb movement arousal index was 5.1. IMPRESSION: Obstructive sleep apnea syndrome (G47.33). Apnea-hypopnea index 9.5. RECOMMENDATION: The patient should be encouraged to return to the sleep disorder center for pressure therapy. In the interim, alcohol and sedative avoidance should be practiced and caution exercised during the operation of motor vehicles.
== END ==
LOC: M SLEEP 20:00
PROVIDERS: ATTEND Nurse Practitioner Family
DX: G47.33 Obstructive sleep apnea (adult) (pediatric) (principal)

== ENCOUNTER → 2019-07-25 | Outpatient (CLI) | payer BC ==
--- NOTE | 2019-08-02 17:32 | SLEEPCENT ---
DATE OF PROCEDURE: 07/25/2019 ORDERED BY: TORITO Guadarrama Nocturnal polysomnography was performed for the titration of pressure therapy in this patient with obstructive sleep apnea syndrome. Apnea-hypopnea index 9.5. For testing a [place], Simplus full-face mask of medium size was used; 4 cm of water pressure were applied to the circuit and the lights were extinguished. 7 hours and 35 minutes of data were reviewed. There were 303 minutes of sleep identified. Sleep latency was mildly prolonged at 50.5 minutes. Rapid eye movement (REM) latency was normal at 126 minutes. Sleep architecture improved with optimal pressure therapy. Overall sleep efficiency was 67.9%. The patient's electrocardiogram showed a sinus rhythm with an average heart rate of 58 beats per minute. Electroencephalogram (EEG) showed normal waveforms for awake and sleep. Respiratory events were reasonably palliated with CPAP at a pressure of +9. Some activity was noted in the limb leads. Limb movement arousal index of this occasion was 9.9. IMPRESSION: Obstructive sleep apnea syndrome (G47.33). RECOMMENDATIONS: Nightly use of pressure therapy 9 cm of water.
== END ==
LOC: M SLEEP 20:00
PROVIDERS: ATTEND Nurse Practitioner Family
DX: G47.33 Obstructive sleep apnea (adult) (pediatric) (principal)

== ENCOUNTER → 2019-10-25 | Outpatient (CLI) | payer BC ==
--- NOTE | 2019-11-25 10:15 | REP ---
CAROTID DOPPLER ULTRASOUND CLINICAL: History of stenosis and prior right endarterectomy. COMPARISON: 04/09/2019 TECHNIQUE: Real-time gomes-scale and color Doppler evaluation using linear high frequency transducer. FINDINGS: Mild mixed atheromatous plaquing noted through the bilateral carotid bulbs and proximal portions of the internal carotid arteries. Color evaluation demonstrates relatively normal laminar flow without obvious significant areas of narrowing or stenosis. Normal flow direction noted in the bilateral vertebral arteries. PEAK FLOW VELOCITY ANALYSIS RIGHT LEFT ICA PSV 139 cm/s 96.9 cm/s ICA EDV 14.9 cm/s 16.8 cm/s ECA PSV 129 cm/s 114 cm/s CCA PSV 116 cm/s 104 cm/s ICA/CCA RATIO 1.20 1.07 IMPRESSION: Mild bilateral atheromatous plaquing without areas of narrowing or stenosis appreciated. Narrowing is felt to be lower limits of the 50-69% range on the right and less than 50% range on the left. MTDD
== END ==
LOC: M RAD 12:26
PROVIDERS: ATTEND Surgery Vascular Surgery
DX: I65.23 Occlusion and stenosis of bilateral carotid arteries (principal)

== ENCOUNTER → 2020-03-24 | Outpatient (REF) | payer BC ==
[2020-03-24 11:30] LABS: HEMATOCRIT 38.9 % (42.0-52.0); HEMOGLOBIN 12.7 g/dl (13.5-17.5); MEAN CORPUSCULAR HEMOGLOBIN 33.2 pg (27.0-33.0); MEAN CORPUSCULAR HGB CONC 32.6 g/dl (32.0-36.5); MEAN CORPUSCULAR VOLUME 101.6 fl (80.0-96.0); PLATELET COUNT, AUTOMATED 311 10^3/uL (150-450); RED BLOOD COUNT 3.83 10^6/uL (4.30-6.10); WHITE BLOOD COUNT 6.4 10^3/uL (4.0-10.0)
[2020-03-24 11:44] LABS: ALBUMIN 3.6 GM/DL (3.2-5.2); BILIRUBIN,TOTAL 0.4 MG/DL (0.2-1.0); CALCIUM LEVEL 9.2 MG/DL (8.8-10.2); CHOLESTEROL RISK RATIO 3.354 (<5); CREATININE FOR GFR 1.3 MG/DL (0.70-1.30); FREE T4 0.8 NG/DL (0.76-1.46); GLOMERULAR FILTRATION RATE 57.3 (>42); POTASSIUM SERUM 4.3 MEQ/L (3.5-5.1); THYROID STIMULATING HORMONE 1.84 uIU/ML (0.358-3.740); TOTAL PROTEIN 7.2 GM/DL (6.4-8.2)
== END ==
LOC: M SFHCCLAY 09:07
PROVIDERS: ATTEND Family Medicine
DX: E78.00 Pure hypercholesterolemia, unspecified (principal); I10 Essential (primary) hypertension; F01.50 Vascular dementia, unspecified severity, without behavioral disturbance, psychotic disturbance, mood disturbance, and anxiety; I65.21 Occlusion and stenosis of right carotid artery

== ENCOUNTER → 2020-03-26 | Outpatient (REF) | payer BC ==
[2020-03-26 16:52] LABS: FOLATE 7.9 NG/ML (>5.4)
== END ==
LOC: M SFHCCLAY 08:16
PROVIDERS: ATTEND Family Medicine
DX: D53.9 Nutritional anemia, unspecified (principal)

== ENCOUNTER → 2020-06-15 | Outpatient (CLI) | payer BC ==
--- NOTE | 2020-06-15 14:20 | REP ---
INDICATION: STENOSIS COMPARISON: 10/25/2019 TECHNIQUE: Mckeon scale and color Doppler evaluation using linear high frequency transducer Findings: FINDINGS: Two-dimensional mckeon scale and color images demonstrate mild partially calcified atheromatous plaquing with normal laminar flow and no appreciable narrowing. Color Doppler interrogation demonstrates normal arterial wave patterns and velocities with no significant spectral broadening. Normal flow direction is appreciated in the bilateral vertebral arteries. History of prior right endarterectomy. ICA peak systolic velocity: Right 139 cm/s; Left 96.9 cm/s ICA diastolic velocity: Right 14.9 cm/s; Left 16.8 cm/s ECA peak systolic velocity: Right 129 cm/s; Left 114 cm/s CCA peak systolic velocity: Right 116 cm/s; Left 104 cm/s ICA/CCA ratio: Right 1.20 cm/s; Left 1.07 cm/s IMPRESSION: No hemodynamically significant areas of narrowing or stenosis appreciated. Based on set standards narrowing falls within the less than 50% range. <Electronically signed by Isidro Barron > 06/15/20 0094
== END ==
LOC: M RAD 12:41
PROVIDERS: ATTEND Surgery Vascular Surgery
DX: I65.23 Occlusion and stenosis of bilateral carotid arteries (principal)

== ENCOUNTER → 2021-03-30 | Outpatient (REF) | payer BC ==
[~2021-03-30] MED LIST changes: +DONE-1 PO; -DONETAB6 PO
== END ==
LOC: M SFHCCLAY 11:20
PROVIDERS: ATTEND Family Medicine
DX: R55 Syncope and collapse (principal); I10 Essential (primary) hypertension

== ENCOUNTER → 2021-04-28 | Outpatient (REF) | payer BC ==
[2021-04-28 17:58] LABS: BASO # 0.1 10^3/uL (0.0-0.2); BASO % 0.9 % (0.0-1.0); EOS # 0.2 10^3/uL (0.0-0.5); EOS % 2.8 % (0.0-3.0); HEMATOCRIT 42.6 % (42.0-52.0); HEMOGLOBIN 13.6 g/dl (13.5-17.5); LYMPH # 0.9 10^3/uL (1.5-5.0); MEAN CORPUSCULAR HEMOGLOBIN 32.2 pg (27.0-33.0); MEAN CORPUSCULAR HGB CONC 31.9 g/dl (32.0-36.5); MEAN CORPUSCULAR VOLUME 100.7 fl (80.0-96.0); MONO # 0.6 10^3/uL (0.0-0.8); MONO % 8.6 % (2.0-8.0); NEUTROPHILS % 73.7 % (36.0-66.0); PLATELET COUNT, AUTOMATED 356 10^3/uL (150-450); RED BLOOD COUNT 4.23 10^6/uL (4.30-6.10); WHITE BLOOD COUNT 6.8 10^3/uL (4.0-10.0)
[2021-04-28 18:22] LABS: C REACTIVE PROTEIN QUANTITATIV 2.56 MG/DL (0.00-0.30); URIC ACID 6.5 MG/DL (3.5-7.2)
[2021-04-28 18:51] LABS: ERYTHROCYTE SEDIMENTATION RATE 35 mm/hr (0-20)
== END ==
LOC: M SFHCCLAY 11:44
PROVIDERS: ATTEND Physician Assistant
DX: M79.672 Pain in left foot (principal)

== ENCOUNTER → 2021-04-28 | Outpatient (CLI) | payer BC | LOC: M CLY 11:27 | PROVIDERS: ATTEND Physician Assistant | DX: M19.09 Primary osteoarthritis, other specified site (principal); M79.672 Pain in left foot ==

== ENCOUNTER → 2022-05-11 | Outpatient (REF) | payer BC ==
[~2022-05-11] MED LIST changes: +CLOP75TA99 PO; -PLAV1TAB2 PO
[2022-05-11 18:10] LABS: BASO # 0.1 10^3/uL (0.0-0.2); BASO % 0.9 % (0.0-1.0); EOS # 0.2 10^3/uL (0.0-0.5); EOS % 4.1 % (0.0-3.0); HEMATOCRIT 38.9 % (42.0-52.0); HEMOGLOBIN 12.6 g/dl (13.5-17.5); LYMPH % 16.4 % (24.0-44.0); MEAN CORPUSCULAR HGB CONC 32.4 g/dl (32.0-36.5); MEAN CORPUSCULAR VOLUME 101.8 fl (80.0-96.0); MONO # 0.5 10^3/uL (0.0-0.8); MONO % 8.3 % (2.0-8.0); NEUTROPHILS % 68.8 % (36.0-66.0); PLATELET COUNT, AUTOMATED 290 10^3/uL (150-450); RED BLOOD COUNT 3.82 10^6/uL (4.30-6.10); WHITE BLOOD COUNT 5.8 10^3/uL (4.0-10.0)
[2022-05-11 18:21] LABS: THYROID STIMULATING HORMONE 1.832 uIU/ML (0.55-4.78)
[2022-05-11 18:22] LABS: VITAMIN B12 LEVEL 1124 PG/ML (211-911)
[2022-05-11 18:26] LABS: ALBUMIN 3.6 G/DL (3.2-5.2); ALKALINE PHOSPHATASE 95 U/L (46-116); ALT/SGPT 20 U/L (7.0-40); AST/SGOT 16 U/L (<34); BILIRUBIN,TOTAL 0.5 MG/DL (0.3-1.2); BLOOD UREA NITROGEN 14 MG/DL (9-23); CALCIUM LEVEL 8.8 MG/DL (8.3-10.6); CARBON DIOXIDE LEVEL 30 MMOL/L (20-31); CHLORIDE LEVEL 105 MMOL/L (98-107); CHOLESTEROL LEVEL 130 MG/DL (<200); CHOLESTEROL RISK RATIO 2.81 (<5); GLOMERULAR FILTRATION RATE > 60.0 (>42); GLUCOSE, FASTING 108 MG/DL (74-106); HDL CHOLESTEROL 46.1 MG/DL (>40); LDL CHOLESTEROL 63.7 MG/DL (<100); NON-HDL-C 83.9 MG/DL; POTASSIUM SERUM 4.5 MMOL/L (3.5-5.1); SODIUM LEVEL 140 MMOL/L (136-145); TOTAL PROTEIN 6.5 G/DL (5.7-8.2); TRIGLYCERIDES LEVEL 101 MG/DL (<150)
== END ==
LOC: M SFHCCLAY 10:14
PROVIDERS: ATTEND Family Medicine
DX: I10 Essential (primary) hypertension (principal); D53.9 Nutritional anemia, unspecified; G30.9 Alzheimer's disease, unspecified; E78.00 Pure hypercholesterolemia, unspecified

== ENCOUNTER → 2022-10-13 | Outpatient (REF) | payer BC | LOC: M SFHCCLAY 09:51 | PROVIDERS: ATTEND Family Medicine | DX: Z12.5 Encounter for screening for malignant neoplasm of prostate (principal) ==

== ENCOUNTER → 2022-10-27 | Outpatient (REF) | payer BC | LOC: M SFHCCLAY 13:18 | PROVIDERS: ATTEND Physician Assistant | DX: R97.20 Elevated prostate specific antigen [PSA] (principal) ==

== ENCOUNTER → 2023-06-21 | Outpatient (REF) | payer BC ==
[2023-06-21 17:46] LABS: BASO # 0.1 10^3/uL (0.0-0.2); BASO % 0.8 % (0.0-1.0); EOS # 0.2 10^3/uL (0.0-0.5); EOS % 3.9 % (0.0-3.0); HEMATOCRIT 41.5 % (42.0-52.0); HEMOGLOBIN 13.6 g/dl (13.5-17.5); LYMPH % 17.5 % (24.0-44.0); MEAN CORPUSCULAR HEMOGLOBIN 33.3 pg (27.0-33.0); MEAN CORPUSCULAR HGB CONC 32.8 g/dl (32.0-36.5); MEAN CORPUSCULAR VOLUME 101.7 fl (80.0-96.0); MONO # 0.4 10^3/uL (0.0-0.8); MONO % 6.1 % (2.0-8.0); NEUTROPHILS # 4.2 10^3/uL (1.5-8.5); NEUTROPHILS % 70.9 % (36.0-66.0); PLATELET COUNT, AUTOMATED 259 10^3/uL (150-450); RED BLOOD COUNT 4.08 10^6/uL (4.30-6.10); WHITE BLOOD COUNT 5.9 10^3/uL (4.0-10.0)
[2023-06-21 17:52] LABS: ALBUMIN 3.7 G/DL (3.2-5.2); ALKALINE PHOSPHATASE 82 U/L (46-116); ALT/SGPT 15 U/L (7.0-40); AST/SGOT 13 U/L (<34); BILIRUBIN,TOTAL 0.6 MG/DL (0.3-1.2); BLOOD UREA NITROGEN 19 MG/DL (9-23); CALCIUM LEVEL 9.3 MG/DL (8.3-10.6); CARBON DIOXIDE LEVEL 30 MMOL/L (20-31); CHLORIDE LEVEL 104 MMOL/L (98-107); CHOLESTEROL LEVEL 131 MG/DL (<200); CHOLESTEROL RISK RATIO 2.63 (<5); CREATININE FOR GFR 1.13 MG/DL (0.70-1.30); GLOMERULAR FILTRATION RATE > 60.0 (>42); GLUCOSE, FASTING 117 MG/DL (74-106); HDL CHOLESTEROL 49.8 MG/DL (>40); LDL CHOLESTEROL 63.4 MG/DL (<100); NON-HDL-C 81.2 MG/DL; POTASSIUM SERUM 4.4 MMOL/L (3.5-5.1); PROSTATIC SPECIFIC AG MONITOR 6.34 NG/ML (< 4.00); SODIUM LEVEL 139 MMOL/L (136-145); TOTAL PROTEIN 6.8 G/DL (5.7-8.2); TRIGLYCERIDES LEVEL 89 MG/DL (<150)
[2023-06-21 18:42] LABS: HEMOGLOBIN A1c 5.1 % (4.0-6.0)
== END ==
LOC: M SFHCCLAY 11:43
PROVIDERS: ATTEND Physician Assistant
DX: R97.20 Elevated prostate specific antigen [PSA] (principal); E78.00 Pure hypercholesterolemia, unspecified

== ENCOUNTER → 2023-08-11 | Outpatient (REF) | payer BC ==
[2023-08-11 17:32] LABS: APPEARANCE, URINE CLEAR (CLEAR); BACTERIA, URINE AUTO NEGATIVE (NEGATIVE); BILIRUBIN, URINE AUTO NEGATIVE (NEGATIVE); BLOOD, URINE BLOOD NEGATIVE (NEGATIVE); COLOR, URINE YELLOW (YELLOW); GLUCOSE, URINE (UA) AUTO NEGATIVE (NEGATIVE); KETONE, URINE AUTO NEGATIVE (NEGATIVE); LEUKOCYTE ESTERASE, URINE AUTO NEGATIVE (NEGATIVE); MUCUS, URINE SMALL (NEGATIVE); NITRITE, URINE AUTO NEGATIVE (NEGATIVE); PROTEIN, URINE AUTO NEGATIVE (NEGATIVE); RBC, URINE AUTO 0 /HPF (0-3); SQUAMOUS EPITHELIAL CELL UR AU 0 /HPF (0-6); WBC, URINE AUTO 0 /HPF (0-3)
== END ==
LOC: M SFHCCLAY 16:37
PROVIDERS: ATTEND Family Medicine
DX: R41.0 Disorientation, unspecified (principal)

== ENCOUNTER → 2023-12-05 | Outpatient (REF) | payer BC | LOC: M SFHCCLAY 14:00 | PROVIDERS: ATTEND Family Medicine | DX: R97.20 Elevated prostate specific antigen [PSA] (principal) ==

== ENCOUNTER 2024-04-12 04:40 | Emergency (ER) | payer BC, MEDICARE ==
[~2024-04-12] VITALS: Ht 182.9 cm; Wt 77.3 kg
[2024-04-12] MEDS ORDERED: ATOR40TA75 (04:57)
[2024-04-12] MEDS ORDERED: MEMA10TA (04:57)
[2024-04-12] MEDS ORDERED: VITA100018 PO (04:57)
[2024-04-12] MEDS ORDERED: QUET1TAB17 (04:57)
[2024-04-12] MEDS ORDERED: METO1TAB7 (04:57)
[2024-04-12] MEDS ORDERED: ESCITALOPRAM (04:57)
[2024-04-12] MEDS ORDERED: FINA5TAB2 (04:57)
[2024-04-12 06:40] VITALS: BP 138/69; TEMP 98.5; O2SAT 98
== END 2024-04-12 06:48 | disposition home or self-care (01) ==
LOC: M ED 04:40 → EDBD 04:40 → M ED 06:48
DX: S00.03XA Contusion of scalp, initial encounter (principal); W01.0XXA Fall on same level from slipping, tripping and stumbling without subsequent striking against object, initial encounter; Y92.009 Unspecified place in unspecified non-institutional (private) residence as the place of occurrence of the external cause; Y93.89 Activity, other specified; Y99.9 Unspecified external cause status; M47.812 Spondylosis without myelopathy or radiculopathy, cervical region; Z88.0 Allergy status to penicillin; Z79.899 Other long term (current) drug therapy